=== PATIENT | male | born 1955 | race Caucasian/White ===

== ENCOUNTER 2018-04-30 08:35 | Outpatient (CLI) | payer OTHER, SELFPAY | END 2018-04-30 08:55 | PROVIDERS: PCP Nurse Practitioner Family; Visit Provider Internal Medicine Endocrinology, Diabetes & Metabolism | DX: E27.8 Other specified disorders of adrenal gland (principal); E87.6 Hypokalemia; E83.42 Hypomagnesemia | CPT/HCPCS: 36415; 80053; 80061; 82533; 83721 ==

== ENCOUNTER 2018-08-13 10:02 | Outpatient (CLI) | payer OTHER, SELFPAY ==
[2018-08-13 10:26] LABS: Abs Immature Grans 0.01 k/cumm (0.0-0.09); Absolute Basophil Count 0.02 k/cumm (0.0-0.2); Absolute Lymphocyte Count 1.86 k/cumm (1.2-3.4); Absolute Monocyte Count 0.57 k/cumm (0.11-0.7); Absolute Neutrophil Count 4.55 k/cumm (1.2-6.7); Basophils % 0.3; Eosinophils % 2.8; HCT 45.6 % (40.0-50.0); HGB 16.5 g/dL (13.5-17.5); Immature Grans % 0.1; Lymphocytes % 25.8; Mean Corp. HGB Concentration 36.2 g/dL (32.0-36.0); Mean Corpuscular Hemoglobin 32.5 pg (27.0-33.0); Mean Corpuscular Volume 89.8 fL (80-95); Mean Platelet Volume 9.3 fL (8.0-11.0); Monocytes % 7.9; Neutrophils % 63.1; Platelet Count 186 x1000/uL (130-400); RBC 5.08 m/cumm (4.50-6.00); RBC Distribution Width 13.9 % (11.8-14.1); White Blood Cell Count 7.21 k/cumm (4.4-10.8)
[2018-08-13 11:15] LABS: ALT 26 U/L (12-78); AST 17 U/L (15-37); Albumin 4.2 g/dL (3.4-5.0); Alkaline Phosphatase 102 U/L (46-116); Anion Gap 9.5 mmol/L (3-11); BUN 15 mg/dL (7-18); Bilirubin, Total 1.2 mg/dL (0.2-1.0); CO2 28.5 mmol/L (21.0-32.0); CREATININE 0.94 mg/dL (0.70-1.30); Chloride 102 mmol/L (98-107); Cholesterol 133 mg/dL (50-200); Glucose 107 mg/dL (70-100); HDL Cholesterol 43 mg/dL (40-60); LDL CHOLESTEROL 76 mg/dL (<100); Potassium 3.8 mmol/L (3.5-5.1); Sodium 140 mmol/L (136-145); Total Protein 7.5 g/dL (6.4-8.2); Triglyceride 79 mg/dL (30-150)
== END 2018-08-13 10:22 ==
PROVIDERS: PCP Nurse Practitioner Family; Visit Provider Nurse Practitioner Family
DX: E78.5 Hyperlipidemia, unspecified (principal); B18.2 Chronic viral hepatitis C; I10 Essential (primary) hypertension; Z13.1 Encounter for screening for diabetes mellitus; K74.60 Unspecified cirrhosis of liver
CPT/HCPCS: 36415; 80053; 80061; 83721; 85025

== ENCOUNTER 2020-02-26 02:55 | Outpatient (CLI) | payer OTHER, SELFPAY ==
[2020-02-26 07:32] LABS: Bilirubin Negative (Negative); Blood Negative (Negative); Clarity Clear (Clear); Glucose Negative (Negative); Ketones Negative (Negative); Leukocyte Esterase Negative (Negative); Nitrite Negative (Negative); Specific Gravity 1.025 (1.005-1.025)
[2020-02-26 07:55] LABS: INR 1.1 (0.9-1.1); Prothrombin Time 10.7 sec (9.3-11.0)
[2020-02-26 08:46] LABS: Hemoglobin A1C 5.4 % (3.8-5.6)
[2020-02-26 08:49] LABS: ALT 33 U/L (16-63); AST 18 U/L (15-37); Albumin 4.1 g/dL (3.4-5.0); Alkaline Phosphatase 102 U/L (46-116); Anion Gap 10.1 mmol/L (3-11); BUN 14 mg/dL (7-18); Bilirubin, Total 0.8 mg/dL (0.2-1.0); CO2 27.9 mmol/L (21.0-32.0); CREATININE 0.81 mg/dL (0.70-1.30); Calcium 8.7 mg/dL (8.5-10.1); Calculated LDL 92 mg/dL (<100); Chloride 102 mmol/L (98-107); Cholesterol 153 mg/dL (<200); Glucose 101 mg/dL (74-106); HDL Cholesterol 39 mg/dL (40-60); Potassium 3.7 mmol/L (3.5-5.1); Sodium 140 mmol/L (136-145); Total Protein 7.2 g/dL (6.4-8.2); Triglyceride 113 mg/dL (<150)
[2020-02-26 17:41] LABS: PSA, Screening 0.2 ng/mL (0.0-4.5)
== END 2020-02-26 03:15 ==
PROVIDERS: PCP Nurse Practitioner Family; Visit Provider Nurse Practitioner Family
DX: E78.5 Hyperlipidemia, unspecified (principal); B19.20 Unspecified viral hepatitis C without hepatic coma; K74.60 Unspecified cirrhosis of liver; R73.01 Impaired fasting glucose; R39.198 Other difficulties with micturition
CPT/HCPCS: 36415; 80053; 80061; 84153; 81003; 83036; 85610

== ENCOUNTER 2020-04-08 01:06 | Outpatient (CLI) | payer OTHER, SELFPAY ==
--- NOTE | 2020-04-08 | DI.US_ITS ---
EXAM: US ABDOMEN CLINICAL HISTORY: HEPATIC CIRRHOSIS,SCREEN FOR HCC,K74.60 TECHNIQUE: Ultrasound abdomen performed using standard protocol. COMPARISON: CT UPPER ABD W/WO CONTRAST(P) from 01/08/2018 US ABDOMEN ULTRASOUND (P) from 01/16/2018 US ABDOMEN ULTRASOUND (P) from 01/16/2018 FINDINGS: LIVER: Normal size. Mildly heterogeneous echotexture.. No focal liver lesions are seen.. GALLBLADDER: No evidence of cholelithiasis. A stone was noted on 2018 exam which was not identified on the current study. No evidence of wall thickening. No pericholecystic fluid identified. BACK'S SIGN: Negative. BILIARY SYSTEM: No intrahepatic or extrahepatic biliary ductal dilation. KIDNEYS: Kidneys are symmetric in size. No evidence of renal calculi. No evidence of hydronephrosis. No renal mass or cyst identified. PANCREAS: Normal where visualized. SPLEEN: Not enlarged. ABDOMINAL AORTA AND IVC: Visualized portions normal caliber. ASCITES: None seen. IMPRESSION: Mild coarsening of the liver echotexture. No evidence liver mass. DATA REPOSITORY:
== END 2020-04-08 01:26 ==
PROVIDERS: PCP Nurse Practitioner Family; Visit Provider Nurse Practitioner Adult Health
DX: K74.60 Unspecified cirrhosis of liver (principal)
CPT/HCPCS: 76700

== ENCOUNTER 2020-05-25 00:46 | Outpatient (CLI) | payer OTHER, MEDICARE, SELFPAY ==
--- NOTE | 2020-05-25 06:45 | DI.RAD_ITS ---
EXAM: XR CHEST 2V PA LATERAL CLINICAL HISTORY: R/o cardiopulm process to explain sx,DYSPNEA,PALPITATIONS,R06.00,R00.2 TECHNIQUE: 2D digital imaging was performed. COMPARISON: No exams were available for comparison FINDINGS: The heart is not enlarged. The lungs are clear and well expanded. No pleural effusion seen. Mediastin al contours appear intact. IMPRESSION: Normal chest RADIATION DOSE DELIVERED: Total DLP
== END 2020-05-25 01:06 ==
PROVIDERS: PCP Nurse Practitioner Family; Visit Provider Nurse Practitioner Family
DX: R06.00 Dyspnea, unspecified (principal); R00.2 Palpitations
CPT/HCPCS: 71046

== ENCOUNTER 2020-05-25 02:07 | Outpatient (CLI) | payer OTHER, MEDICARE, SELFPAY ==
[2020-05-25 14:24] LABS: HCT 42.6 % (40.0-50.0); HGB 15.4 g/dL (13.5-17.5); MCH 32.8 pg (27.0-33.0); MCHC 36.2 % (32.0-36.0); MCV 90.6 fL (80-95); MPV 9.4 fL (8.0-11.0); Platelet Count 200 10^3/uL (130-400); RDW 12.9 % (11.8-14.1); RDW-SD 42.4 fL; WBC 6.86 10^3/uL (4.4-10.8)
[2020-05-25 15:25] LABS: TSH (W/Ref FT4) 1.61 uIU/mL (0.36-3.74)
== END 2020-05-25 02:27 ==
PROVIDERS: PCP Nurse Practitioner Family; Visit Provider Nurse Practitioner Family
DX: R00.2 Palpitations (principal); R06.00 Dyspnea, unspecified
CPT/HCPCS: 36415; 85027; 84443

== ENCOUNTER 2020-05-28 02:57 | Outpatient (CLI) | payer OTHER, MEDICARE, SELFPAY ==
--- NOTE | 2020-06-16 13:27 | ZIOP_ITS ---
Date of service: 06/16/20 Time of Service: 13:27 14 Day Customer Service Coordinator Referring Provider:: Aura Johns Indications:: palpitations Note: This is a 14-day monitor ordered for palpitations Predominant rhythm is sinus with an average heart rate of 87. Minimum heart rate was 52, maximum 162(sinus tachycardia) There were rare to occasional atrial and ventricular ectopic beats There were rare atrial and ventricular couplets There was one 8 beat atrial run. There was several ventricular triplets There was no atrial fibrillation, pauses greater than 3 seconds, or high-grade AV block Patient events correlated to sinus rhythm
== END 2020-05-28 03:17 ==
PROVIDERS: PCP Nurse Practitioner Family; Visit Provider Nurse Practitioner Family
DX: R00.2 Palpitations (principal); I49.1 Atrial premature depolarization
CPT/HCPCS: 0296T

== ENCOUNTER 2020-06-15 00:02 | Outpatient (CLI) | payer OTHER, MEDICARE, SELFPAY ==
--- NOTE | 2020-06-15 09:00 | ETT_ITS ---
APPROVED REPORT Exam: Exercise Treadmill Patient Location: Out-Patient Room/Bed: Stress Nurse: Amparo Alvarez RN BMI: 26.62 Baseline Rhythm: Sinus Rhythm, PVC's Indications: BOGGS and palpitations, rule out CVD. Medical History Medical History: HTN, HLD, JOVI, Cirrhosis d/t hx of Hepatitis C, Adrenal Incidentaloma. Cardiac Medications: Atorvastatin, Hydrochlorothiazide,Ramipril Allergies: Penicillins Cardiac Risk Factors: HTN, Hyperlipidemia, FHX of CAD, Smoking (former) Previous Cardiac Procedures: None. Pretest Chest Pain Characteristics: No chest pain Exercise History: Physically active Physical Disabilities: None. Lung Sounds: Clear to auscultation Heart Sounds: Regular Stress Test Details Test: Exercise stress testing was performed using a Richi protocol. Rest Stress HR Resting HR Supine: 82 bpm Max Heart Rate (APMHR): 154 bpm Resting HR Standin bpm Target HR (85% APMHR): 130 bpm Max HR Achieved: 169 bpm % of APMHR: 109 Recovery HR: 103 bpm HR response to stress: Normal HR response to stress BP Resting BP Supine: 144/90 mmHg Resting BP Standin/86 mmHg Max BP: 174/78 mmHg Recovery BP: 140/88 mmHg BP response to stress: Normal blood pressure response to stress. ECG Resting ECG: Sinus Rhythm Ectopy: PVCs Stress ECG: Sinus Tachycardia ST Change: no signficant ST segment changes noted. Arrhythmia: PACs, frequent PVCs, couplet Recovery ECG: Sinus Rhythm Recovery ST Change: upward sloping ST segment depression Lead(s): II, V4, V5 Recovery ST Deviation: 0 mm Recovery Arrhythmia: PACs, PVCs Clinical Reason for Termination: Fatigue Stress Symptoms: Leg Fatigue Exercise duration: 12 min06 sec Highest Stage Reached: Stage 5: 5.0 mph at 18% grade. Exercise capacity: 13.54 METs Stress ECG Conclusion 1. The resting electrocardiogram was normal 2. Patient exercised on the Richi protocol. He completed a workload of 13.54 METS, stopping due to l eg fatigue 3. Normal heart rate and blood pressure response to exercise 4. Electrocardiographically there was no evidence of myocardial ischemia 5. There were rare ventricular ectopic beats 6. Martin treadmill score is 12, low risk Stress Test Summary STAGE Time (mins) Speed (mph) Grade (%) HR BP SYMPTOMS METS Supine 82 144/90 Standing 93 140/86 1 3 1.7 10 112 150/84 4.6 2 6 2.5 12 125 154/80 7 3 9 3.4 14 145 166/82 10.2 4 12 4.2 16 162 172/80 12.9 1 min recovery 148 174/78 3 min recovery 117 166/82 6 min recovery 104 138/83 9 min recovery 103 140/80
== END 2020-06-15 00:22 ==
PROVIDERS: PCP Nurse Practitioner Family; Visit Provider Nurse Practitioner Family
DX: R06.09 Other forms of dyspnea (principal); R00.2 Palpitations; I10 Essential (primary) hypertension; E78.5 Hyperlipidemia, unspecified; Z82.49 Family history of ischemic heart disease and other diseases of the circulatory system; Z87.891 Personal history of nicotine dependence
CPT/HCPCS: 93017

== ENCOUNTER 2020-10-15 02:30 | Outpatient (CLI) | payer OTHER, MEDICARE, SELFPAY ==
[2020-10-16 13:09] LABS: COVID-19 RT-PCR UVMMC Result Negative (Negative)
== END 2020-10-15 02:31 | disposition home or self-care (01) ==
LOC: LBO 02:30
PROVIDERS: PCP Nurse Practitioner Family; Visit Provider Nurse Practitioner Family
DX: Z20.828 Contact with and (suspected) exposure to other viral communicable diseases (principal)
CPT/HCPCS: U0003

== ENCOUNTER 2021-03-24 12:00 | Emergency (ER) | payer OTHER, MEDICARE, SELFPAY ==
[2021-03-24] VITALS (72 sets, daily range): BP systolic 111–156; BP diastolic 71–95; PULSE 72–98; RESP 13–25; TEMP 36.6–37.1; O2SAT 91–99
--- NOTE | 2021-03-24 12:00 | RT.EKG_ITS ---
APPROVED REPORT Exam: Resting ECG Reason for Exam: sob Patient Location: E HR:93 bpm ECG Measurements Heart Rate 93 AXIS IA 146 P 54 QRSd 81 QRS 28 QT 374 T 33 QTc 465 Conclusion Sinus rhythm...normal P axis, V-rate 60- 99 Atrial premature complex...SV complex w/ short R-R interval
[2021-03-24 12:34] LABS: Lactate 1.8 mmol/L (0.6-1.4)
[2021-03-24 12:40] LABS: Abs Immature Grans 0.01 10^3/uL (0.0-0.06); Absolute Lymphocyte Count 0.97 10^3/uL (1.2-3.4); Absolute Monocyte Count 0.29 10^3/uL (0.1-0.8); Absolute Neutrophil Count 2.24 10^3/uL (1.2-6.7); HGB 15.6 g/dL (13.5-17.5); Immature Grans % 0.3; Lymphocytes % 27.6; MCH 32.2 pg (27.0-33.0); MCHC 36.3 % (32.0-36.0); MCV 88.7 fL (80-95); MPV 9.9 fL (8.0-11.0); Monocytes % 8.3; Neutrophils % 63.8; Nucleated RBC 0 %; Platelet Count 124 10^3/uL (130-400); RBC 4.85 10^6/uL (4.36-5.78); RDW-SD 39.2 fL; WBC 3.51 10^3/uL (4.4-10.8)
[2021-03-24 12:46] LABS: Magnesium 1.8 mg/dL (1.8-2.4)
[2021-03-24 12:59] LABS: Source Nasal/Nares
[2021-03-24 12:59] LABS: ALT 49 U/L (16-63); AST 46 U/L (15-37); Albumin 3.6 g/dL (3.4-5.0); Alkaline Phosphatase 110 U/L (46-116); BUN 18 mg/dL (7-18); Bilirubin, Total 1.2 mg/dL (0.2-1.0); Calcium 8.4 mg/dL (8.5-10.1); Chloride 95 mmol/L (98-107); Glucose 95 mg/dL (74-106); NT-proBNP 61 pg/mL (<300); Potassium 3.2 mmol/L (3.5-5.1); Sodium 133 mmol/L (136-145); Total Protein 7.8 g/dL (6.4-8.2); Troponin I < 0.05 ng/mL (<0.06)
[2021-03-24] MEDS: Normal Saline 1,000 ML 1000 ML IV (13:03)
[2021-03-24] MEDS: Acetaminophen 500 MG TAB 1000 MG PO (13:03)
--- NOTE | 2021-03-24 13:15 | DI.CT_ITS ---
Exam(s) CT CHEST PE CTA EXAM: CT CHEST PE CTA CLINICAL HISTORY: elevated ddimer, sob. TECHNIQUE: Imaging Protocol: CT angiography of the chest was performed using pulmonary embolus surjit col. Multi planar reconstructions were performed. CONTRAST MATERIAL: Intravenous: Omnipaque 350 Contrast volume: 100 cc COMPARISON: CT CHEST FOR PULMONARY EMBOLUS from 06/24/2017 CT UPPER ABD W/WO CONTRAST(P) from 01/08/2018 FINDINGS: CHEST: PULMONARY ARTERIES: There are no intraluminal filling defects to suggest acute pulmonary emboli. LUNGS: There is significant infiltrate in the posterior segment of the right upper lobe, superior seg ment of the right lower lobe and posterior and lateral basal segments of the right lower lobe, not as sociated with pleural effusion. A lesser amount of the same infiltrate is seen in the left lung invo lving the left lower lobe. There is sparing of the left upper lobe and lingular segment.. No pleura l effusions on either side. No significant focal findings in the trachea and mainstem bronchi. MEDIASTINUM: There is no hilar nor mediastinal adenopathy. Visualized thyroid unremarkable. CARDIAC: Heart size is upper normal. There is no pericardial effusion.Caliber of the thoracic aorta is within normal limits. No evidence of aortic dissection. There is no significant shift of the inte rventricular septum. PARTIALLY VISUALIZED UPPERMOST ABDOMEN: There is a well-defined hypodense nodule in the right adrenal gland again noted which measures 2.2 cm wide by 2.1 cm AP by 2 cm craniocaudal. This is unchanged i n size from 3 years ago (December 2017) OSSEOUS: No significant osseous lesions.. IMPRESSION: 1. No evidence of acute pulmonary emboli. No evidence of pulmonary infarction.No pleural effusions. 2. However, there is now significant infiltrate in the right upper and right lower lobes as well as i n the left lower lobe. Recommend Covid-19 testing. 3. No intrathoracic adenopathy evident. 4. Continued stable appearance of a 2 centimeter nodule in the right adrenal gland, unchanged from J une 2018 (3 years) and us a stable benign adenoma. The opposite-left adrenal gland remains unremarka ble. RADIATION DOSE DELIVERED: 446.63mGy.cm Total DLP DATA REPOSITORY: All CT scans at this facility are submitted to the National Radiology Data Registry (NRDR) Dose Index Registry (DIR) with the [employer] (ACR). RADIATION OPTIMIZATION: All CT scans at this facility use at least one of these dose optimization te chniques: automated exposure control; mA and/or kV adjustment per patient size (includes targeted exa ms where dose is matched to clinical indication); or iterative reconstruction.
[2021-03-24 13:17] LABS: D-Dimer 3758 ng/mlFEU (<500)
[2021-03-24 13:22] LABS: Creatine Kinase 143 U/L (39-308); TSH (W/Ref FT4) 1.68 uIU/mL (0.36-3.74)
[2021-03-24 13:49] LABS: COVID-19 PCR POSITIVE (Negative)
[2021-03-24] MEDS: Omnipaque 350 MG/ML 100 ML BTL IJ (14:23)
[2021-03-24 14:24] LABS: C-Reactive Protein 1.43 mg/dL (0.0-0.3); LDH 303 U/L (85-227)
[2021-03-24 16:01] LABS: Bilirubin Negative (Negative); Blood Negative (Negative); Clarity Clear (Clear); Glucose Negative (Negative); Ketones 15 mg/dL (Negative); Leukocyte Esterase Negative (Negative); Nitrite Negative (Negative); Urobilinogen 0.2 EU/dL (Up TO 0.2)
--- NOTE | 2021-03-24 16:08 | W.ED.GENAD ---
Discharge Plan Disposition Patient Disposition: HOME Condition: Stable Discharge Details Clinical Impression: COVID-19 Primary Care Provider: Aura Johns ED Provider: Diallo Mcgee Home Meds and New Rx's Prescriptions: New doxycycline hyclate 100 mg tablet 100 mg PO BID Qty: 14 RF: 0 Continued atorvastatin 20 mg tablet 20 mg PO DAILY Qty: 90 RF: 3 hydrochlorothiazide 12.5 mg capsule 12.5 mg PO DAILY Qty: 90 RF: 3 ramipril 10 mg capsule 10 mg PO DAILY Qty: 90 RF: 3 Discharge Instructions Instructions: Viral Syndrome (ED) Additional Instructions: You must isolate for 7 additional days Take antibiotics as prescribed Take Tylenol 650 mg every 6 hours for fever control, keep yourself hydrated You should not have exposure outside of your immediate household for the next 10 days You are receiving monoclonal antibody, you are at risk for allergic reaction, if you develop worsening shortness of breath, difficulty swallowing, or any new or progressing symptoms, he should go to your nearest hospital for evaluation You also may develop worsening symptoms, check your pulse oximeter should you feel short of breath, if your oxygen saturation is lower than 90%, you should be reevaluated at your nearest hospital, please let them know immediately that you do have COVID-19 Discharge Data Discharge Date/Time-TO BE ENTERED AT DEPARTURE: 03/24/21 19:31 Medical Decision Making <RYAN Velasco - Last Filed: 03/26/21 08:07> Patient has Covid pneumonia on chest CTA, she also has elevated D-dimer, 3700, elevated LDH, 300, elevated CRP greater than 100, leukopenia consistent with Covid, lymphocytopenia consistent with Covid, he is not hypoxic however and he is in no respiratory distress, he is ambulatory for 2 months with a saturation of 97%. He is tachypneic but states he feels significant improvement At this time I think this patient has borderline neck, I am concerned as he is on day 4 that he is going to further decompensate within the next several days Did recommend admission, I spoke with Dr. Brumfield hospitalist who spoke with our property maintenance technician on-call and they feel as though the patient does not meet criteria for admission at this time, I think this patient is quite borderline, however he does have a who is able to observe him, he is given pulse oximetry and is stable at this time He has a Pulsoxymeter for home, he is encouraged to return immediately should he develop oxygen saturation less than 90%, he will return immediately for reevaluation He is receiving a monoclonal antibody, was updated They are aware that he will need to isolate Able to be placed on doxycycline I will order an additional dose of Tylenol as he will likely develop a fever shortly He will be discharged home in stable condition post Infusion of monoclonal antibody Care signed out to Diallo Mcgee PA-C pending monoclonal antibody infusion, dose of Tylenol at 4-hour samira, and doxycycline for home Results oximetry testing reviewed Medical Records Medical records reviewed: Yes I reviewed the patient's medical records. Lab Data Lab results reviewed: Yes I reviewed the patient's lab results. <RYAN Hernández - Last Filed: 03/24/21 19:44> I assumed care of this 65-year-old gentleman, from my colleague RYAN Kohler, pending his antibiotic infusion, p.o. Tylenol, doxycycline and observation. Please see her initial note regarding HPI and examination. Patient is Covid positive. Patient received his antibiotic infusion, p.o. Tylenol and doxycycline. He was observed in the ER for over an hour with no signs of anaphylaxis. Patient states that he feels well, remains afebrile, and is speaking in full sentences. His O2 sat is 96% on room air. All of the patient's questions were answered to the best of my ability. Standard discharge and return precautions were given. This documentation was generated using [employer] dictation system, please disregard any oddities of phrase or misspellings. HPI <RYAN Velasco - Last Filed: 03/26/21 08:07> General Mode of arrival: ambulatory. Date/Time Provider Initiated Documentation: 03/24/21 12:09. Limitations to Documentation: no limitations. Information obtained by: patient. HPI Narrative: This 65-year-old male presents with medical history of hypertension hypertension, hyperlipidemia with fatigue and dyspnea. He states is been going on for the past 4 days. She denies any chest pain. He states that he feels generally fatigued more been short of breath. He states the symptoms are worsened with exertion. He denies any calf pain or swelling. He denies any recent flights, surgeries, long drives. He did attend the concert 2 weeks ago. Is not Covid vaccinated. He denies similar symptoms in the past. He is unsure if whether or not he had fever at home. He denies any urinary complaints. Denies nausea or vomiting. Related Data Home Medications Medication Instructions Recorded Confirmed atorvastatin 20 mg tablet 20 mg PO DAILY #90 tab-cap 12/11/20 03/24/21 hydrochlorothiazide 12.5 mg capsule 12.5 mg PO DAILY #90 tab-cap 12/11/20 03/24/21 ramipril 10 mg capsule 10 mg PO DAILY #90 tab-cap 12/11/20 03/24/21 doxycycline hyclate 100 mg PO BID #14 tab 03/24/21 Previous Rx's Medication Instructions Recorded atorvastatin 20 mg tablet 20 mg PO DAILY #90 tab-cap 12/11/20 hydrochlorothiazide 12.5 mg capsule 12.5 mg PO DAILY #90 tab-cap 12/11/20 ramipril 10 mg capsule 10 mg PO DAILY #90 tab-cap 12/11/20 doxycycline hyclate 100 mg PO BID #14 tab 03/24/21 Allergies Allergy/AdvReac Type Severity Reaction Status Date / Time Penicillins Allergy Unknown HIVES Verified 03/24/21 12:10 General Stated Complaint: SOB DON: 2 Review of Systems <RYAN Velasco - Last Filed: 03/26/21 08:07> All systems reviewed & are unremarkable except as noted in HPI and below PFSH <RYAN Velasco - Last Filed: 03/26/21 08:07> Medical History (Updated 03/24/21 @ 16:18 by RYAN Velasco) Adenomatous polyp of sigmoid colon (08/31/17) Adrenal incidentaloma [facility] Endocrinology (Dr. 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 at age 70. Rheumatoid arthritis Heart disease Myocardial infarction Father , Parkinson's at age 70. Parkinson's disease Sister Substance abuse Historically Brother No problems noted. 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 Pets and animals: Yes Pets and animals: dog(s) Sexually active: Yes Current gender identity: male What type of physical activity do you participate in: walking Frequency: daily Do you feel safe in your relationship?: Yes Exam <RYAN Velasco - Last Filed: 03/26/21 08:07> Const General: cooperative and ill appearing HENMT Other: Moist mucous membrane Eyes Pupils: PERRL Neck Other: No meningismus Resp Effort & Inspection: normal respiratory effort Auscultation: clear to auscultation bilaterally Cardio Rate: regular rate Rhythm: regular rhythm GI Other: Nontender abdominal exam Skin General skin exam: no rashes or lesions noted Neuro General: patient alert and patient oriented x3 Extrem Other: No calf swelling or tenderness appreciated Course <RYAN Velasco - Last Filed: 03/26/21 08:07> Vital Signs Vital signs: Vital Signs Temperature 37.1 C 03/24/21 12:05 Pulse 93 H 03/24/21 12:05 Respiratory Rate 22 03/24/21 12:05 Blood Pressure 156/94 H 03/24/21 12:05 Pulse Oximetry 99 03/24/21 12:05 Temperature 36.8 C 03/24/21 15:14 Temperature Source Oral 03/24/21 15:14 Pulse 98 H 03/24/21 15:46 Pulse 75 03/24/21 16:00 Respiratory Rate 19 03/24/21 16:00 Respiratory Effort Labored 03/24/21 12:11 Respiratory Depth Normal 03/24/21 12:11 Respiratory Pattern Normal 03/24/21 12:11 Blood Pressure 130/95 H 03/24/21 15:46 Blood Pressure Mean 99 03/24/21 15:46 Blood Pressure Position Supine 03/24/21 12:05 Pulse Oximetry 98 03/24/21 16:00 Oxygen Delivery Method Room Air 03/24/21 15:14 Oxygen Flow Rate 0 03/24/21 15:14 Pain Level 0 03/24/21 15:14 Lab/Test Results Lab/Test Results: 03/24/21 13:18 Blood Blood Culture - Pending 03/24/21 13:10 Blood Blood Culture - Pending Laboratory Tests Range/Units 03/24/21 03/24/21 03/24/21 12:20 12:20 12:20 WBC (4.4-10.8) 10^3/uL 3.51 L RBC (4.36-5.78) 10^6/uL 4.85 Hgb (13.5-17.5) g/dL 15.6 Hct (40.0-50.0) % 43.0 MCV (80-95) fL 88.7 MCH (27.0-33.0) pg 32.2 MCHC (32.0-36.0) % 36.3 H RDW (11.8-14.1) % 12.0 Plt Count (130-400) 10^3/uL 124 L MPV (8.0-11.0) fL 9.9 Immature Gran % 0.3 Neutrophils % 63.8 Lymphocytes % 27.6 Monocytes % 8.3 Eosinophils % 0.0 Basophils % 0.0 Nucleated RBC % % 0 Absolute Neutrophils (1.2-6.7) 10^3/uL 2.24 Absolute Lymphocytes (1.2-3.4) 10^3/uL 0.97 L Absolute Monocytes (0.1-0.8) 10^3/uL 0.29 Absolute Eosinophils (0.0-0.7) 10^3/uL 0.00 Absolute Basophils (0.0-0.2) 10^3/uL 0.00 D-Dimer (<500) ng/mlFEU VBG Lactate (0.6-1.4) mmol/L Sodium (136-145) mmol/L 133 L Potassium (3.5-5.1) mmol/L 3.2 L Chloride (98-107) mmol/L 95 L Carbon Dioxide (21.0-32.0) mmol/L 25.0 Anion Gap (3-11) mmol/L 13.0 H BUN (7-18) mg/dL 18 Creatinine (0.70-1.30) mg/dL 1.0 Estimated GFR/1.73 m2 (mL/min/1.73m2) >= 60.00 Glucose (74-106) mg/dL 95 Calcium (8.5-10.1) mg/dL 8.4 L Magnesium (1.8-2.4) mg/dL 1.8 Total Bilirubin (0.2-1.0) mg/dL 1.2 H AST (15-37) U/L 46 H ALT (16-63) U/L 49 Alkaline Phosphatase (46-116) U/L 110 Lactate Dehydrogenase (85-227) U/L Creatine Kinase (39-308) U/L Troponin I (<0.06) ng/mL < 0.05 C-Reactive Protein (0.0-0.3) mg/dL NT-Pro-B Natriuret Pep (<300) pg/mL 61 Total Protein (6.4-8.2) g/dL 7.8 Albumin (3.4-5.0) g/dL 3.6 TSH (0.36-3.74) uIU/mL Urine Color (Yellow) Urine Clarity (Clear) Urine pH (5-8) Ur Specific [place] (1.005-1.025) Urine Protein (Negative) mg/dL Urine Ketones (Negative) mg/dL Urine Blood (Negative) Urine Nitrite (Negative) Urine Bilirubin (Negative) Urine Urobilinogen (Up TO 0.2) EU/dL Ur Leukocyte Esterase (Negative) Urine Glucose (Negative) mg/dL COVID-19 Source SARS-CoV-2 (PCR) (Negative) Range/Units 03/24/21 03/24/21 03/24/21 12:20 12:20 12:20 WBC (4.4-10.8) 10^3/uL RBC (4.36-5.78) 10^6/uL Hgb (13.5-17.5) g/dL Hct (40.0-50.0) % MCV (80-95) fL MCH (27.0-33.0) pg MCHC (32.0-36.0) % RDW (11.8-14.1) % Plt Count (130-400) 10^3/uL MPV (8.0-11.0) fL Immature Gran % Neutrophils % Lymphocytes % Monocytes % Eosinophils % Basophils % Nucleated RBC % % Absolute Neutrophils (1.2-6.7) 10^3/uL Absolute Lymphocytes (1.2-3.4) 10^3/uL Absolute Monocytes (0.1-0.8) 10^3/uL Absolute Eosinophils (0.0-0.7) 10^3/uL Absolute Basophils (0.0-0.2) 10^3/uL D-Dimer (<500) ng/mlFEU 3758 H VBG Lactate (0.6-1.4) mmol/L 1.8 H Sodium (136-145) mmol/L Potassium (3.5-5.1) mmol/L Chloride (98-107) mmol/L Carbon Dioxide (21.0-32.0) mmol/L Anion Gap (3-11) mmol/L BUN (7-18) mg/dL Creatinine (0.70-1.30) mg/dL Estimated GFR/1.73 m2 (mL/min/1.73m2) Glucose (74-106) mg/dL Calcium (8.5-10.1) mg/dL Magnesium (1.8-2.4) mg/dL Total Bilirubin (0.2-1.0) mg/dL AST (15-37) U/L ALT (16-63) U/L Alkaline Phosphatase (46-116) U/L Lactate Dehydrogenase (85-227) U/L Creatine Kinase (39-308) U/L 143 Troponin I (<0.06) ng/mL C-Reactive Protein (0.0-0.3) mg/dL NT-Pro-B Natriuret Pep (<300) pg/mL Total Protein (6.4-8.2) g/dL Albumin (3.4-5.0) g/dL TSH (0.36-3.74) uIU/mL 1.68 Urine Color (Yellow) Urine Clarity (Clear) Urine pH (5-8) Ur Specific [place] (1.005-1.025) Urine Protein (Negative) mg/dL Urine Ketones (Negative) mg/dL Urine Blood (Negative) Urine Nitrite (Negative) Urine Bilirubin (Negative) Urine Urobilinogen (Up TO 0.2) EU/dL Ur Leukocyte Esterase (Negative) Urine Glucose (Negative) mg/dL COVID-19 Source SARS-CoV-2 (PCR) (Negative) Range/Units 03/24/21 03/24/21 03/24/21 12:20 12:55 15:50 WBC (4.4-10.8) 10^3/uL RBC (4.36-5.78) 10^6/uL Hgb (13.5-17.5) g/dL Hct (40.0-50.0) % MCV (80-95) fL MCH (27.0-33.0) pg MCHC (32.0-36.0) % RDW (11.8-14.1) % Plt Count (130-400) 10^3/uL MPV (8.0-11.0) fL Immature Gran % Neutrophils % Lymphocytes % Monocytes % Eosinophils % Basophils % Nucleated RBC % % Absolute Neutrophils (1.2-6.7) 10^3/uL Absolute Lymphocytes (1.2-3.4) 10^3/uL Absolute Monocytes (0.1-0.8) 10^3/uL Absolute Eosinophils (0.0-0.7) 10^3/uL Absolute Basophils (0.0-0.2) 10^3/uL D-Dimer (<500) ng/mlFEU VBG Lactate (0.6-1.4) mmol/L Sodium (136-145) mmol/L Potassium (3.5-5.1) mmol/L Chloride (98-107) mmol/L Carbon Dioxide (21.0-32.0) mmol/L Anion Gap (3-11) mmol/L BUN (7-18) mg/dL Creatinine (0.70-1.30) mg/dL Estimated GFR/1.73 m2 (mL/min/1.73m2) Glucose (74-106) mg/dL Calcium (8.5-10.1) mg/dL Magnesium (1.8-2.4) mg/dL Total Bilirubin (0.2-1.0) mg/dL AST (15-37) U/L ALT (16-63) U/L Alkaline Phosphatase (46-116) U/L Lactate Dehydrogenase (85-227) U/L 303 H Creatine Kinase (39-308) U/L Troponin I (<0.06) ng/mL C-Reactive Protein (0.0-0.3) mg/dL 1.43 H NT-Pro-B Natriuret Pep (<300) pg/mL Total Protein (6.4-8.2) g/dL Albumin (3.4-5.0) g/dL TSH (0.36-3.74) uIU/mL Urine Color (Yellow) Yellow Urine Clarity (Clear) Clear Urine pH (5-8) 7.0 Ur Specific [place] (1.005-1.025) 1.010 Urine Protein (Negative) mg/dL 30 H Urine Ketones (Negative) mg/dL 15 H Urine Blood (Negative) Negative Urine Nitrite (Negative) Negative Urine Bilirubin (Negative) Negative Urine Urobilinogen (Up TO 0.2) EU/dL 0.2 Ur Leukocyte Esterase (Negative) Negative Urine Glucose (Negative) mg/dL Negative COVID-19 Source Nasal/Nares SARS-CoV-2 (PCR) (Negative) POSITIVE A*
[2021-03-24 16:14] LABS: Troponin I < 0.05 ng/mL (<0.06)
[2021-03-24 16:16] LABS: Bacteria Negative HPF (Negative); C & S Indicated? No; Crystals Negative HPF (Negative); Epithelial Cells Negative HPF (Negative); Mucus Negative (Negative); RBC 0-2 HPF (0-2); WBC Negative HPF (0-5)
[2021-03-24] MEDS: Acetaminophen 325 MG TAB 650 MG PO (19:20)
[2021-03-24] MEDS: Doxycycline Hyclate 100 MG CAP PO (19:21)
== END 2021-03-24 19:31 | disposition home or self-care (01) ==
PROVIDERS: Physician Assistant; Emergency Provider Physician Assistant; PCP Nurse Practitioner Family
DX: U07.1 COVID-19 (principal); J12.82 Pneumonia due to coronavirus disease 2019; R79.1 Abnormal coagulation profile; Z20.822 Contact with and (suspected) exposure to COVID-19
CPT/HCPCS: 36415; 71275; 80053; 82550; 87040; 87635; 93005; 96360; 96365; 99285; 81003; 81015; 83605; 83615; 83735; 83880; 84443; 84484; 85025; 85379; 86140; 93010; J3490

== ENCOUNTER 2021-05-17 03:08 | Outpatient (CLI) | payer OTHER, MEDICARE, SELFPAY ==
[2021-05-17 13:05] LABS: Abs Immature Grans 0.02 10^3/uL (0.0-0.06); Absolute Basophil Count 0.02 10^3/uL (0.0-0.2); Absolute Eosinophil Count 0.17 10^3/uL (0.0-0.7); Absolute Lymphocyte Count 1.86 10^3/uL (1.2-3.4); Absolute Monocyte Count 0.44 10^3/uL (0.1-0.8); Absolute Neutrophil Count 4.22 10^3/uL (1.2-6.7); Basophils % 0.3; Eosinophils % 2.5; HCT 41.9 % (40.0-50.0); HGB 14.4 g/dL (13.5-17.5); Immature Grans % 0.3; Lymphocytes % 27.6; MCH 31.7 pg (27.0-33.0); MCHC 34.4 % (32.0-36.0); MCV 92.3 fL (80-95); MPV 9.1 fL (8.0-11.0); Monocytes % 6.5; Neutrophils % 62.8; Nucleated RBC 0 %; Platelet Count 193 10^3/uL (130-400); RBC 4.54 10^6/uL (4.36-5.78); RDW 13.9 % (11.8-14.1); RDW-SD 47.6 fL; WBC 6.73 10^3/uL (4.4-10.8)
[2021-05-17 13:23] LABS: Hemoglobin A1C 5.4 % (<5.7)
[2021-05-17 13:42] LABS: Prothrombin Time 10.4 sec (9.3-11.0)
[2021-05-17 15:43] LABS: ALT 30 U/L (16-63); AST 17 U/L (15-37); Albumin 4.1 g/dL (3.4-5.0); Alkaline Phosphatase 100 U/L (46-116); Anion Gap 8.3 mmol/L (3-11); BUN 14 mg/dL (7-18); Bilirubin, Total 0.9 mg/dL (0.2-1.0); CO2 28.7 mmol/L (21.0-32.0); CREATININE 0.7 mg/dL (0.70-1.30); Calcium 8.8 mg/dL (8.5-10.1); Calculated LDL 108 mg/dL (<100); Chloride 106 mmol/L (98-107); Cholesterol 169 mg/dL (<200); Glucose 92 mg/dL (74-106); HDL Cholesterol 44 mg/dL (40-60); Potassium 4.3 mmol/L (3.5-5.1); Sodium 143 mmol/L (136-145); Total Protein 7.1 g/dL (6.4-8.2); Triglyceride 87 mg/dL (<150)
== END 2021-05-17 03:09 | disposition home or self-care (01) ==
LOC: LBO 03:09
PROVIDERS: PCP Nurse Practitioner Family; Visit Provider Nurse Practitioner Family
DX: I10 Essential (primary) hypertension (principal); E78.5 Hyperlipidemia, unspecified; R73.01 Impaired fasting glucose; B18.2 Chronic viral hepatitis C; K74.60 Unspecified cirrhosis of liver
CPT/HCPCS: 36415; 80053; 80061; 83036; 85025; 85610

== ENCOUNTER → 2021-12-22 03:40 | Outpatient (CLI) | payer MEDICARE, SELFPAY ==
--- NOTE | 2021-12-22 06:45 | DI.US_ITS ---
Exam(s) US ABDOMEN EXAM: US ABDOMEN CLINICAL HISTORY: Q6 month screening for HCC, B18.2, K74.60, HEPATIC CIRRHOSIS TECHNIQUE: Ultrasound abdomen performed using standard protocol. COMPARISON: US US ABDOMEN from 06/10/2021 FINDINGS: ABDOMINAL AORTA AND IVC: Visualized portions normal caliber. PANCREAS: Normal where visualized. LIVER: Normal. Hepatopedal flow in the Portal Vein. GALLBLADDER:No evidence of cholelithiasis. No evidence of wall thickening. No pericholecystic fluid i dentified. BILIARY SYSTEM: Common bile duct measures < 7 mm. No intrahepatic biliary ductal dilation. BACK'S SIGN: Negative. KIDNEYS: Kidneys are symmetric in size. No evidence of renal calculi. No evidence of hydronephrosis. No renal mass or cyst identified. SPLEEN: Not enlarged. ASCITES: None seen. IMPRESSION: Normal sonographic appearance of the upper abdomen. DATA REPOSITORY:
== END ==
PROVIDERS: PCP Nurse Practitioner Family; Visit Provider Nurse Practitioner Family
DX: B18.2 Chronic viral hepatitis C (principal); K74.60 Unspecified cirrhosis of liver
CPT/HCPCS: 76700

== ENCOUNTER → 2021-12-23 02:23 | Outpatient (CLI) | payer MEDICARE, SELFPAY ==
--- NOTE | 2021-12-23 07:28 | DI.CT_ITS ---
Exam(s) CT ABDOMEN WO EXAM: CT ABDOMEN WO CLINICAL HISTORY: overdue f/u adrenal mass to check for stability, E27.8. TECHNIQUE: Imaging Protocol: Axial computed tomography images with coronal and sagittal reformatted images were created and reviewed. COMPARISON: CT CHEST FOR PULMONARY EMBOLUS from 06/24/[address] CHEST PE CTA from 03/24/2021 FINDINGS: Lack of IV contrast does limit evaluation of the abdominal organs. ABDOMEN: Lung Bases: Normal where visualized. Liver: Normal density. No measurable mass. Gallbladder and biliary tract: No radiodense calculus or biliary ductal dilation. Pancreas: Normal density, no abnormal calcifications or inflammatory process. Spleen: Normal. Kidneys: Normal size, contour and axis.No radiodense stones or obstructive uropathy. No masses seen. Adrenal glands: The left adrenal gland is unremarkable. There is a stable 2.2 cm hypodense right adr enal nodule. Hounsfield units are -8. This is been stable since 2017. No follow-up is recommended. Lymph nodes: Within normal limits. Bowel: Visualized bowel is unremarkable. Abdominal Aorta: Abdominal portion non-dilated. Atherosclerosis. Bones: Age-appropriate degenerative changes are present. Soft tissues: Unremarkable. IMPRESSION: 2.2 cm right adrenal nodule which has been stable since 2017. It is most likely represents a adrenal adenoma. No follow-up is recommended. RADIATION DOSE DELIVERED: 399.31mGy.cm Total DLP DATA REPOSITORY: All CT scans at this facility are submitted to the National Radiology Data Registry (NRDR) Dose Index Registry (DIR) with the [employer] (A[employer]). RADIATION OPTIMIZATION: All CT scans at this facility use at least one of these dose optimization te chniques: automated exposure control; mA and/or kV adjustment per patient size (includes targeted exa ms where dose is matched to clinical indication); or iterative reconstruction.
== END ==
PROVIDERS: PCP Nurse Practitioner Family; Visit Provider Nurse Practitioner Family
DX: E27.8 Other specified disorders of adrenal gland (principal); D35.01 Benign neoplasm of right adrenal gland
CPT/HCPCS: 74150

== ENCOUNTER 2022-04-26 03:12 | Outpatient (CLI) | payer MEDICARE, SELFPAY ==
[2022-04-26 07:44] LABS: Abs Immature Grans 0.01 10^3/uL (0.0-0.06); Absolute Basophil Count 0.05 10^3/uL (0.0-0.2); Absolute Eosinophil Count 0.33 10^3/uL (0.0-0.7); Absolute Lymphocyte Count 2.37 10^3/uL (1.2-3.4); Absolute Monocyte Count 0.54 10^3/uL (0.1-0.8); Absolute Neutrophil Count 3.16 10^3/uL (1.2-6.7); Basophils % 0.8; Eosinophils % 5.1; HCT 43.1 % (40.0-50.0); HGB 15.4 g/dL (13.5-17.5); Immature Grans % 0.2; Lymphocytes % 36.7; MCH 32.8 pg (27.0-33.0); MCHC 35.7 % (32.0-36.0); MCV 92 fL (80-95); MPV 9.5 fL (8.0-11.0); Monocytes % 8.4; Neutrophils % 48.8; Platelet Count 164 10^3/uL (130-400); RBC 4.69 10^6/uL (4.36-5.78); RDW 13.2 % (11.8-14.1); RDW-SD 44.6 fL; WBC 6.46 10^3/uL (4.4-10.8)
[2022-04-26 07:58] LABS: Hemoglobin A1C 5.3 % (<5.7)
[2022-04-26 08:11] LABS: ALT 27 U/L (16-63); AST 13 U/L (15-37); Alkaline Phosphatase 99 U/L (46-116); Anion Gap 8.4 mmol/L (3-11); BUN 19 mg/dL (7-18); Bilirubin, Total 1.3 mg/dL (0.2-1.0); CO2 28.6 mmol/L (21.0-32.0); CREATININE 0.9 mg/dL (0.70-1.30); Calculated LDL 78 mg/dL (<100); Chloride 104 mmol/L (98-107); Cholesterol 141 mg/dL (<200); Estimated GFR 93.03 (mL/min/1.73m2); Glucose 98 mg/dL (74-106); HDL Cholesterol 42 mg/dL (40-60); Potassium 4.6 mmol/L (3.5-5.1); Sodium 141 mmol/L (136-145); Total Protein 7.4 g/dL (6.4-8.2); Triglyceride 106 mg/dL (<150)
== END 2022-04-26 03:13 | disposition home or self-care (01) ==
LOC: LBO 03:13
PROVIDERS: PCP Nurse Practitioner Family; Visit Provider Nurse Practitioner Family
DX: E78.5 Hyperlipidemia, unspecified (principal); R73.01 Impaired fasting glucose; K74.69 Other cirrhosis of liver; B18.2 Chronic viral hepatitis C
CPT/HCPCS: 36415; 80053; 80061; 83036; 85025

== ENCOUNTER → 2022-05-26 03:09 | Outpatient (CLI) | payer MEDICARE, SELFPAY ==
--- NOTE | 2022-05-26 08:00 | DI.US_ITS ---
Exam(s) US ABDOMEN LIMITED EXAM: US ABDOMEN LIMITED CLINICAL HISTORY: screening for liver cancer,hepatic cirrhosis, k74.60 TECHNIQUE: Ultrasound abdomen performed using standard protocol. COMPARISON: CT CT ABDOMEN WO from 12/23/2021 FINDINGS: PANCREAS: Normal where visualized. LIVER: Normal. Hepatopedal flow in the Portal Vein. The liver measures in 13.4 cm length. GALLBLADDER: No evidence of cholelithiasis. No evidence of wall thickening. No pericholecystic fluid identified. BILIARY SYSTEM: Common bile duct measures < 7 mm. No intrahepatic biliary ductal dilation. BACK'S SIGN: Negative. RIGHT KIDNEY: Kidney is normal in size. No evidence of renal calculi. No evidence of hydronephrosis. No renal mass or cyst identified. ASCITES: None seen. ABDOMINAL AORTA AND IVC: Visualized portions normal caliber. IMPRESSION: Normal sonographic appearance of the upper abdomen. DATA REPOSITORY:
== END ==
PROVIDERS: PCP Nurse Practitioner Family; Visit Provider Nurse Practitioner Family
DX: K74.60 Unspecified cirrhosis of liver (principal)
CPT/HCPCS: 76705

== ENCOUNTER → 2022-08-18 09:38 | Outpatient (BNVA) | payer MEDICARE, SELFPAY | PROVIDERS: PCP Nurse Practitioner Family; Referring Provider Nurse Practitioner Family; Visit Provider Physical Therapy Assistant | DX: Z86.010 Personal history of colon polyps (principal); Z12.11 Encounter for screening for malignant neoplasm of colon ==

== ENCOUNTER 2022-09-01 09:04 | Day surgery (SDC) | payer MEDICARE, SELFPAY ==
--- NOTE | 2022-08-31 21:27 | W.PM.DSUDISC ---
Date of service: 09/01/22 Time of Service: 11:20 Discharge Plan Disposition Patient Disposition: Home Condition: Good Discharge Details Reason For Visit: Screening colonoscopy Attending Provider: Nicola Pascal Primary Care Provider: Aura Johns Home Meds and New Rx's Prescriptions: Continued atorvastatin 20 mg tablet 20 mg PO HS hydrochlorothiazide 12.5 mg capsule 12.5 mg PO HS ramipril 10 mg capsule 10 mg PO HS Discontinued bisacodyl [Dulcolax (bisacodyl)] 5 mg tablet,delayed release (DR/EC) 5 mg PO ONCE Qty: 4 0RF Rx Instructions: Take according to provider's instructions for colonoscopy prep. polyethylene glycol 3350 17 gram/dose powder 17 g PO ONCE Qty: 238 0RF Rx Instructions: To be taken as directed by prescriber's office for colonoscopy prep. Discharge Instructions Additional Instructions: On, we are able to perform a complete colonoscopy today. I did not see any evidence of any polyps anywhere throughout your large intestine. Everything else looked totally normal as well. Since your last colonoscopy had only a singular tubular adenoma, and this 1 was negative, a standard recommendation would be for your next screening colonoscopy in 10 years. However, you should know that some physicians debate the utility of screening colonoscopy after 75 years of age. In that regards, I would suggest giving thoughtful consideration as to what you expect out of this procedure. If you have tolerated the colonoscopy is fine in the past, it would be very reasonable to get 1 more colonoscopy in the next 5 to 10 years and to reassess how you feel after that. 1. If tolerated, consume a soft, low fiber diet for 1-2 days. 2[address] Do not drive, drink alcohol, operate machinery, make critical decisions, or do activities that require coordination or balance for 24 hours. 3. Because air was put into your colon during the procedure, expelling air from your rectum (passing gas or farting) is normal. 4. You may not have a bowel movement for 1-3 days because of the colonoscopy prep. This is normal. 5. Go directly to the emergency room if you notice any of the following: Develop chills (warm to touch), or if you have a thermometer and your temperature is above 101 Difficulty breathing or difficultly swallowing Persistent vomiting Severe abdominal pain, other than gas cramps Severe chest pain Black, tarry stools Any bleeding ? exceeding one tablespoon 6. Call your physician if the site where your intravenous was started becomes red, swollen, painful, and warm to touch. 7. Your physician has reviewed your pre-procedure medications. Please continue to take those medications as previously ordered. You will be given specific information/education regarding any changes to your medications before leaving. Activity:: Activity as Tolerated Diet:: As Tolerated Discharge Orders Discharge Orders: Discharge Order (Routine); Ordered 08/31/22 Ordered By: Nicola Pascal DS: Diagnosis Discharge Diagnosis (1) Screening for colon cancer: Status: Acute Asessment and Plan: Normal colonoscopy today Next screening colonoscopy should be 5 to 10 years
--- NOTE | 2022-08-31 21:28 | COLE_ITS ---
Date of service: 09/01/22 Time of Service: 11:22 Colonoscopy Report Date of procedure: 09/01/22 Pre-op diagnosis general: Screening colonoscopy Post-op diagnosis procedure note: other (Normal colonoscopy) Procedure: Colonoscopy Surgeon: Nicola Pascal Anesthesia Type: General:No Airway Estimated blood loss (mL): 0 Pathology: none sent Complications: None Disposition: same day Indications: Bruce is a 66-year-old male who is here for screening colonoscopy. He is undergone the procedure before, and he underwent removal of tubular adenoma. Prep: Miralax/Dulcolax Procedure Start Time: 10:43 Procedure End Time: 11:01 Retraction Time: 11 Findings: Normal colonoscopy Procedure Description: After the induction of monitored anesthetic care, and with the patient in left lateral decubitus position, I began by performing an external anorectal exam.? Perineum and skin were normal, as was the anal verge.? There was no not evidence of external hemorrhoids.? Next, I performed a digital rectal exam.? I did appreciate any abnormal findings.? Next, I advanced a colonoscope into the rectal vault.? I performed retroflexion.? This appeared normal.? Using insufflation, I then advanced the colonoscope beyond the rectal folds and into t he sigmoid colon before advancing towards the cecum.? The quality of the prep was excellent.? The scope was noted to be in the cecum by identification of the ileocecal valve and appendiceal orifice.? I then began withdrawing the colonoscope using repeated irrigation as necessary for full evaluation of the colonic mucosa. ?Once the scope was withdrawn to the level of the rectum, great care was taken to examine portions of the rectal folds.? I did not see any evidence of cancers, polyps, or other colon abnormalities. Finally, the scope was withdrawn and the patient was brought to the same-day surgery recovery unit as the anesthetic wore off. ?The findings and instructions were shared with the patient prior to discharge.
[2022-09-01 09:06] VITALS: BP 130/88; PULSE 95; RESP 18; TEMP 36.3; O2SAT 99
[2022-09-01] MEDS: Lactated Ringers 1,000 ML 80 ML IV (09:43)
--- NOTE | 2022-09-01 10:04 | W.ANESPRE ---
General Info Date of Service Date Performed: 09/01/22 Height: 5 ft 6 in Weight: 72.5 kg Body Mass Index (BMI): 25.7 Surgical Procedure: Operation Date: 09/01/22 10:35 Proposed Procedure Side Surgeon p Colonoscopy Nicola Pascal MD Meds Allergies and Home Medications Allergies Allergy/AdvReac Type Severity Reaction Status Date / Time Penicillins Allergy Unknown HIVES Verified 09/01/22 09:22 Home Medication Medication Instructions Recorded atorvastatin 20 mg tablet 20 mg PO HS 08/31/22 hydrochlorothiazide 12.5 mg capsule 12.5 mg PO HS 08/31/22 ramipril 10 mg capsule 10 mg PO HS 08/31/22 Current Visit Medications: Current Medications Generic Name Dose Route Start Last Admin Trade Name Freq PRN Reason Stop Dose Admin Hyoscyamine Sulfate 0.125 mg 08/31/22 21:29 Hyoscyamine 0.125 Mg Sl/Oral/Chew SL DIRECTED PRN Ringer's Solution 1,000 mls @ 80 mls/hr 09/01/22 06:00 09/01/22 09:43 IV 09/30/22 23:59 80 mls/hr INFUSION TWILA Administration IV Miscellaneous Supplies 1 each 09/01/22 06:00 Iv Access IV 09/30/22 23:59 DIRECTED TWILA Ondansetron HCl 4 mg 08/31/22 21:29 Ondansetron 4 Mg/2 Ml Vial IVP Q4H PRN PRN Nausea / Vomiting Sodium Chloride 0 ml 09/01/22 06:00 Normal Saline Flush 10 Ml Syr IV 09/30/22 23:59 PRN PRN Sodium Chloride 0 ml 09/01/22 06:00 Normal Saline 10 Ml Vial IJ 09/30/22 23:59 DIRECTED PRN Sterile Water 0 ml 09/01/22 06:00 Water,Injection,Sterile 10 Ml Vial IJ 09/30/22 23:59 DIRECTED PRN PFSH Active Problems Active Problems: Problem Status Onset Code Essential hypertension I10 Hyperlipidemia E78.5 Obstructive sleep apnea 05/10/17 G47.33 IFG (impaired fasting glucose) R73.01 BPH (benign prostatic hyperplasia) N40.0 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 Douglas); 12/23/2021 CT: stable, no further f/u needed COVID-19 Substance use disorder 1982 Surgical History Surgical History Amputation pt denies Broken Nose Colonoscopy - [facility] (08/28/17) H/O arthroscopy of left knee 2012- Dr. Buitrago Liver BX (04/25/96) x2 REPAIR OF RUPTERED ACHILLES TENDON Tobacco Smoking/Tobacco Use Status: Former Tobacco Use Passive smoking exposure: No Alcohol Alcohol Intake: former Substance Use Substance use: Current Sobriety Substance use type: does not use Vital Signs and Lab Results Vital Signs Most Recent Vital Signs in EMR: Most Recent Vital Signs Temp Pulse Resp BP Pulse Ox 36.3 C L 95 H 18 130/88 99 09/01/22 09:06 09/01/22 09:06 09/01/22 09:06 09/01/22 09:06 09/01/22 09:06 Lab Results Blood Type / Crossmatch: No Data to Display Complete Blood Count: No Data to Display Complete Metabolic Panel: No Data to Display Liver Function Panel: No Data to Display Coagulation Panel: No Data to Display Cardiac Panel: No Data to Display Arterial Blood Gas: No Data to Display Venous Blood Gas: No Data to Display Pancreas Panel: No Data to Display Thyroid Panel: No Data to Display Infectious Disease: No Data to Display Blood Cultures: No Data to Display Toxicology Panel: No Data to Display Imaging and Studies Imaging and Studies Study information below may be from another EMR and interpreted by another provider. Please see original notes in EMR for more complete details. EKG Summary: 03/20 Sinus rhythm...normal P axis, V-rate 60- 99 Atrial premature complex...SV complex w/ short R-R interval Stress Test Summary: 03/20 Stress ECG Conclusion 1. The resting electrocardiogram was normal 2. Patient exercised on the Richi protocol. He completed a workload of 13.54 METS, stopping due to leg fatigue 3. Normal heart rate and blood pressure response to exercise 4. Electrocardiographically there was no evidence of myocardial ischemia 5. There were rare ventricular ectopic beats 6. Martin treadmill score is 12, low risk Echocardiogram Summary: 10/13 Impressions: Normal study. Summary: 1. Left ventricle: The cavity size was normal. Wall thickness was at the upper limits of normal. Systolic function was at the lower limits of normal. The estimated ejection fraction was 55%. Wall motion was normal; there were no regional wall motion abnormalities. 2. Aortic valve: Trivial regurgitation. Valve area: 2.3cm^2(VTI). 3. Right ventricle: The cavity size was normal. Wall thickness was normal. Systolic function was normal. 4. Pulmonary arteries: PA peak pressure: 31mm Hg (S) Anesthesia Assessment and Plan Anesthesia History Personal History: No History of Anesthesia Complications Family History: No Family History of Anesthesia Complications Exercise Tolerance Exercise Tolerance: Metabolic Equivalents>4 Cardiac & Pulmonary Exam Cardiac Exam: Normal S1/S2 Heart Sounds Pulmonary Exam: Clear Bilateral Breath Sounds Implantable Cardiac Device Does patient have a Pacemaker or an ICD?: No Airway Exam Known Difficult Airway: No Mallampati Class: 2 Mouth Opening: Normal (> 3cm) Thyromental Distance: Greater than 3 cm Neck Range of Motion: Full ROM Neck Circumference: Normal Teeth Condition: Normal Dentition ASA Classification ASA Score: ASA 2 Emergency Case?: No NPO Status NPO Status: NPO Clears >2 hours, Solids >8 hours Anesthesia Plan Resuscitation Status: Full Code Anesthesia Technique: General Anesthesia Airway Planned: Natural Airway Monitors Used: Standard Monitors
[2022-09-01 10:17] VITALS: BMI 25.7
[2022-09-01 11:12] VITALS: BP 107/70; PULSE 88; RESP 16; TEMP 36.4; O2SAT 94
--- NOTE | 2022-09-01 11:28 | W.ANESPOSTOP ---
Postoperative Evaluation Date, Time and Location Date Performed: 09/01/22 Time Performed: 11:28 Patient Location: Day Surgery Unit Vital Signs Most Recent Imported Vital Signs: Most Recent Vital Signs Temp Pulse Resp BP Pulse Ox 36.4 C L 88 16 107/70 94 09/01/22 11:12 09/01/22 11:12 09/01/22 11:12 09/01/22 11:12 09/01/22 11:12 Pain Score Most Recent Pain Score: Most Recent Pain Score Pain Level 0 09/01/22 11:12 Assessment Mental Status: Awake (Alert & Oriented to Patient Baseline) Airway and Respiratory Function: Patent airway with normal (patient baseline) respiratory exam Cardiovascular Function: Hemodynamically Stable Hydration Status: Adequately Hydrated Nausea & Vomiting: No Nausea or Vomiting Pain: Pt. Denies Any Pain Peripheral Nerve Block: Patient did not receive a nerve block
[2022-09-01 11:40] VITALS: BP 114/84; PULSE 78; RESP 18; TEMP 36.2; O2SAT 96
== END 2022-09-01 11:54 | disposition home or self-care (01) ==
PROVIDERS: PCP Nurse Practitioner Family; Visit Provider Surgery
PROC: 0DJD8ZZ Inspection of Lower Intestinal Tract, Via Natural or Artificial Opening Endoscopic (ICD-10-PCS; CPT 45378; principal; 2022-09-01 10:30)
DX: Z12.11 Encounter for screening for malignant neoplasm of colon (principal); Z86.010 Personal history of colon polyps
CPT/HCPCS: G0105

== ENCOUNTER 2022-12-12 01:16 | Outpatient (CLI) | payer MEDICARE, SELFPAY ==
--- NOTE | 2022-12-12 07:00 | DI.US_ITS ---
Exam(s) US ABDOMEN LIMITED EXAM: US ABDOMEN LIMITED CLINICAL HISTORY: screening for HCC, h/o cirrhosis,k74.60 TECHNIQUE: Ultrasound abdomen performed using standard protocol. COMPARISON: US US ABDOMEN from 04/08/2020 FINDINGS: LIVER: Normal size. Normal echogenicity. Heterogeneous echotexture. Slight nodular contour. No fo becky liver lesions are seen.. GALLBLADDER: No evidence of cholelithiasis. No evidence of wall thickening. No pericholecystic fluid identified. BACK'S SIGN: Negative. BILIARY SYSTEM: No intrahepatic or extrahepatic biliary ductal dilation. KIDNEYS: Kidneys are symmetric in size. No evidence of renal calculi. No evidence of hydronephrosis. No renal mass or cyst identified. PANCREAS: Normal where visualized. SPLEEN: Not enlarged. ABDOMINAL AORTA AND IVC: Visualized portions normal caliber. ASCITES: None seen. IMPRESSION: Liver has a heterogeneous echotexture but is normal in size. No liver mass is seen. DATA REPOSITORY:
== END 2022-12-12 01:36 ==
LOC: DI 01:16
PROVIDERS: PCP Nurse Practitioner Family; Visit Provider Nurse Practitioner Family
DX: K76.89 Other specified diseases of liver (principal)
CPT/HCPCS: 76705

== ENCOUNTER 2023-09-14 04:08 | Outpatient (CLI) | payer MEDICARE, SELFPAY ==
[2023-09-14 09:30] LABS: Abs Immature Grans 0.01 10^3/uL (0.0-0.06); Absolute Basophil Count 0.03 10^3/uL (0.0-0.2); Absolute Eosinophil Count 0.23 10^3/uL (0.0-0.7); Absolute Lymphocyte Count 1.72 10^3/uL (1.2-3.4); Absolute Monocyte Count 0.54 10^3/uL (0.1-0.8); Absolute Neutrophil Count 3.86 10^3/uL (1.2-6.7); Basophils % 0.5; Eosinophils % 3.6; HCT 43.8 % (40.0-50.0); HGB 15.7 g/dL (13.5-17.5); Immature Grans % 0.2; Lymphocytes % 26.9; MCH 32.2 pg (27.0-33.0); MCHC 35.8 % (32.0-36.0); MCV 90 fL (80-95); MPV 9.4 fL (8.0-11.0); Monocytes % 8.5; Neutrophils % 60.3; Platelet Count 184 10^3/uL (130-400); RBC 4.87 10^6/uL (4.36-5.78); RDW 13.2 % (11.8-14.1); RDW-SD 43.4 fL; WBC 6.39 10^3/uL (4.4-10.8)
[2023-09-14 09:31] LABS: Hemoglobin A1C 5.4 % (<5.7)
[2023-09-14 09:36] LABS: INR 1.1 (0.9-1.1); Prothrombin Time 11.1 sec (9.1-11.1)
[2023-09-14 10:14] LABS: ALT 26 U/L (16-63); AST 15 U/L (15-37); Albumin 4.1 g/dL (3.4-5.0); Alkaline Phosphatase 104 U/L (46-116); Anion Gap 9.2 mmol/L (3-11); BUN 11 mg/dL (7-18); Bilirubin, Total 1.2 mg/dL (0.2-1.0); CO2 28.8 mmol/L (21.0-32.0); CREATININE 0.9 mg/dL (0.70-1.30); Calcium 9.2 mg/dL (8.5-10.1); Calculated LDL 84 mg/dL (<100); Chloride 104 mmol/L (98-107); Cholesterol 142 mg/dL (<200); Estimated GFR 92.45 (mL/min/1.73m2); Glucose 108 mg/dL (74-106); HDL Cholesterol 47 mg/dL (40-60); Potassium 4.3 mmol/L (3.5-5.1); Sodium 142 mmol/L (136-145); Total Protein 7.7 g/dL (6.4-8.2); Triglyceride 57 mg/dL (<150)
== END 2023-09-14 04:09 | disposition home or self-care (01) ==
LOC: LBO 04:08
PROVIDERS: PCP Nurse Practitioner Family; Referring Provider Nurse Practitioner Family; Visit Provider Nurse Practitioner Family
DX: R73.01 Impaired fasting glucose (principal); B18.2 Chronic viral hepatitis C; K74.60 Unspecified cirrhosis of liver; E78.5 Hyperlipidemia, unspecified
CPT/HCPCS: 36415; 80053; 80061; 83036; 85025; 85610

== ENCOUNTER → 2023-09-27 01:41 | Outpatient (CLI) | payer MEDICARE, SELFPAY ==
--- NOTE | 2023-09-27 06:30 | DI.US_ITS ---
Exam(s) US ABDOMEN EXAM: US ABDOMEN CLINICAL HISTORY: Liver cancer screening,HEPATIC CIRRHOSIS,CHRONIC HEP C,K74.60,B18.2 TECHNIQUE: Ultrasound abdomen performed using standard protocol. COMPARISON: CT CT ABDOMEN WO from 12/23/2021 US US ABDOMEN LIMITED from 12/12/2022 FINDINGS: ABDOMINAL AORTA AND IVC: Visualized portions normal caliber. Atherosclerotic calcification is present . PANCREAS: Normal where visualized. LIVER: Normal. Hepatopedal flow in the Portal Vein. The liver measures 15 cm long. No hepatic mass i s seen sonographically. GALLBLADDER:No evidence of cholelithiasis. No evidence of wall thickening. No pericholecystic fluid i dentified. BILIARY SYSTEM: Common bile duct measures < 7 mm. No intrahepatic biliary ductal dilation. BACK'S SIGN: Negative. KIDNEYS: Kidneys are symmetric in size. No evidence of renal calculi. No evidence of hydronephrosis. Bilateral renal cysts. No follow-up is recommended. SPLEEN: Not enlarged. ASCITES: None seen. IMPRESSION: No evidence of a hepatic mass sonographically. DATA REPOSITORY:
== END ==
PROVIDERS: PCP Family Medicine; Visit Provider Family Medicine
DX: B18.2 Chronic viral hepatitis C (principal); K74.60 Unspecified cirrhosis of liver; Z12.89 Encounter for screening for malignant neoplasm of other sites
CPT/HCPCS: 76700

== ENCOUNTER 2024-02-09 16:07 | Emergency (ER) | payer MEDICARE, SELFPAY ==
[2024-02-09 16:10] VITALS: BP 149/96; PULSE 93; TEMP 36.1; O2SAT 99
--- NOTE | 2024-02-09 16:29 | W.ED.GENAD ---
Discharge Plan Disposition Patient Disposition: Home Condition: Stable Discharge Details Clinical Impression: Injury of left index finger Primary Care Provider: Francois Goddard ED Provider: Roel Kan Home Meds and New Rx's Prescriptions: Continued atorvastatin 20 mg tablet 20 mg PO HS Qty: 90 3RF ramipril 10 mg capsule 10 mg PO DAILY Qty: 90 3RF hydrochlorothiazide 12.5 mg capsule 12.5 mg PO DAILY Qty: 90 3RF Discharge Instructions Additional Instructions: If you have signs of infection such as spreading redness or severe pain return to the emergency department for reevaluation. Otherwise this wound should heal well on its own. HPI General Mode of arrival: ambulatory. Date/Time Provider Initiated Documentation: 02/09/24 16:14. Limitations to Documentation: no limitations. Information obtained by: patient. History of Present Illness 68 year old M presents to the emergency department with the chief complaint of Left index finger injury, described as mild, Quality is described as aching, and is localized to the left and upper extremity. Patient reports no radiation. Patient started experiencing this hour(s) (1) and it has been constant. No relieving factors improve symptom(s), No exacerbating factors reported . Patient notes no other symptoms.. Patient did receive the following treatments prior to arrival, none Related Data Home Medications ?Medication ?Instructions ?Recorded ?Confirmed atorvastatin 20 mg tablet 20 mg PO HS #90 tabs 09/21/23 02/09/24 hydrochlorothiazide 12.5 mg capsule 12.5 mg PO DAILY #90 caps 09/21/23 02/09/24 ramipril 10 mg capsule 10 mg PO DAILY #90 caps 09/21/23 02/09/24 Previous Rx's ?Medication ?Instructions ?Recorded atorvastatin 20 mg tablet 20 mg PO HS #90 tabs 09/21/23 hydrochlorothiazide 12.5 mg capsule 12.5 mg PO DAILY #90 caps 09/21/23 ramipril 10 mg capsule 10 mg PO DAILY #90 caps 09/21/23 Allergies Allergy/AdvReac Type Severity Reaction Status Date / Time Penicillins Allergy Unknown HIVES Verified 02/09/24 16:21 General Stated Complaint: Laceration DON: 3 Review of Systems All systems reviewed & are unremarkable except as noted in HPI and below Constitutional Constitutional: Denies chills, Denies fever(s) and Denies weakness Cardiovascular Cardiovascular: Denies chest pain and Denies dyspnea Respiratory Respiratory: Denies cough and Denies dyspnea Gastrointestinal Gastrointestinal: Denies abdominal pain, Denies nausea and Denies vomiting Musculoskeletal Musculoskeletal: Denies joint swelling Neurologic Neurologic: Denies weakness Exam Const General: no acute distress Orientation: alert [facility] Head: normal to inspection Ears: external ears normal General nose exam: external nose normal Mouth: moist mucous membranes Eyes General: appearance normal, both eyes and all related structures Neck Neck: normal visual inspection Resp Effort & Inspection: normal respiratory effort and able to speak in complete sentences Cardio Rate: regular rate Skin General skin exam: no rashes or lesions noted Neuro General: patient alert and patient oriented x3 Extrem General: full ROM and capillary refill normal Psych Mental Status: mental status grossly normal Course Vital Signs Vital signs: Vital Signs Temperature 36.1 C L 02/09/24 16:10 Pulse 93 H 02/09/24 16:10 Blood Pressure 149/96 H 02/09/24 16:10 Pulse Oximetry 99 02/09/24 16:10 Temperature 36.1 C L 02/09/24 16:10 Temperature Source Temporal Artery Scan 02/09/24 16:10 Pulse 93 H 02/09/24 16:10 Respiratory Effort Normal, Non-Labored 02/09/24 16:12 Blood Pressure 149/96 H 02/09/24 16:10 Pulse Oximetry 99 02/09/24 16:10 Oxygen Delivery Method Room Air 02/09/24 16:10 Oxygen Flow Rate 0 02/09/24 16:10 Medical Decision Making 68-year-old male comes in with a left index finger injury. He says he was changing the knives on his wood zig zag stitcher when 1 of sliced the tip of his left index finger. Did not fall or sustain other injuries. He has a small 1 cm skin avulsion of the distal left index finger with a small portion of the distal nail involved. There is no laceration that can be sutured, no visible bone, he has full range of motion and intact sensation in the finger. Normal cap refill. Advised this will likely have to heal on its own, no lesions or wounds amenable to suturing. Will try to cover him with skin adhesive to help decrease oozing. Please do finger tourniquet then applied skin adhesive over the wound, patient tolerated well and has no further bleeding or oozing. He is stable for discharge and advised to return if signs of infection. Wound was copiously irrigated and cleaned with sterile water Differential Diagnosis Differential Diagnosis: Skin avulsion, laceration Quality:SDOH Health Related Social Needs: Health related social needs details non Thank [facility] All Active Problems (Updated 02/09/24 @ 16:42 by Roel Kan MD) Injury of left index finger (Acute) Essential hypertension (Chronic) Hyperlipidemia (Chronic) Obstructive sleep apnea (Chronic 05/10/17) IFG (impaired fasting glucose) (Chronic) BPH (benign prostatic hyperplasia) (Chronic) Hepatic cirrhosis due to chronic hepatitis C infection (Chronic) 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 Douglas); 12/23/2021 CT: stable, no further f/u needed Surgical History (Updated 11/17/22 @ 09:35 by Aura Johns NP) Status post Achilles tendon repair History of liver biopsy (~1995) ; x2 (1995, 2000) H/O arthroscopy of left knee 2012- Dr. Buitrago Colonoscopy [place] [facility] [place]) Broken Nose Amputation pt denies Family History Mother , Broken heart? at age 70. Rheumatoid arthritis Heart disease Myocardial infarction Father , Parkinson's at age 70. Parkinson's disease Sister Substance abuse Historically Brother No problems noted. 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
== END 2024-02-09 16:54 | disposition home or self-care (01) ==
LOC: ER 16:57
PROVIDERS: Emergency Provider Emergency Medicine; PCP Family Medicine
DX: S61.211A Laceration without foreign body of left index finger without damage to nail, initial encounter (principal); I10 Essential (primary) hypertension; E78.5 Hyperlipidemia, unspecified; W26.9XXA Contact with unspecified sharp object(s), initial encounter; Y92.89 Other specified places as the place of occurrence of the external cause; Y99.0 Civilian activity done for income or pay
CPT/HCPCS: 99283

== ENCOUNTER 2024-09-12 03:08 | Outpatient (CLI) | payer MEDICARE, SELFPAY ==
[2024-09-12 10:28] LABS: ALT 36 U/L (16-63); AST 19 U/L (15-37); Albumin 3.5 g/dL (3.4-5.0); Alkaline Phosphatase 136 U/L (46-116); Anion Gap 7.3 mmol/L (3-11); BUN 17 mg/dL (7-18); Bilirubin, Total 1.05 mg/dL (0.2-1.0); CO2 30.7 mmol/L (21.0-32.0); Calcium 9.5 mg/dL (8.5-10.1); Chloride 104 mmol/L (98-107); Estimated GFR 80.97 (mL/min/1.73m2); Glucose 111 mg/dL (74-106); Potassium 4.5 mmol/L (3.5-5.1); Sodium 142 mmol/L (136-145)
== END 2024-09-12 03:09 | disposition home or self-care (01) ==
LOC: LBO 03:08
PROVIDERS: PCP Family Medicine; Referring Provider Family Medicine; Visit Provider Family Medicine
DX: B18.2 Chronic viral hepatitis C (principal); K74.60 Unspecified cirrhosis of liver
CPT/HCPCS: 36415; 80053

== ENCOUNTER 2024-09-23 01:18 | Outpatient (CLI) | payer MEDICARE, SELFPAY ==
--- NOTE | 2024-09-23 06:30 | DI.US_ITS ---
Exam(s) US ABDOMEN EXAM: US ABDOMEN CLINICAL HISTORY: Annual surveillance for liver cancer,hepatic cirrhosis due to chronic hep c TECHNIQUE: Ultrasound abdomen performed using standard protocol. COMPARISON: CT CT ABDOMEN WO from 12/23/2021 US US ABDOMEN from 09/27/2023 FINDINGS: LIVER: Normal size and echogenicity. No focal liver lesions are seen. GALLBLADDER: No evidence of cholelithiasis. No evidence of wall thickening. No pericholecystic fluid identified. BACK'S SIGN: Negative. BILIARY SYSTEM: No intrahepatic or extrahepatic biliary ductal dilation. KIDNEYS: Kidneys are symmetric in size. No evidence of renal calculi. No evidence of hydronephrosis. Small bilateral cysts again noted. No renal mass identified. PANCREAS: Normal where visualized. SPLEEN: Not enlarged. ABDOMINAL AORTA AND IVC: Visualized portions normal caliber. ASCITES: None seen. IMPRESSION: No evidence of liver mass. DATA REPOSITORY:
== END 2024-09-23 01:38 ==
LOC: DI 01:19
PROVIDERS: PCP Family Medicine; Visit Provider Family Medicine
DX: B18.2 Chronic viral hepatitis C (principal); K74.60 Unspecified cirrhosis of liver
CPT/HCPCS: 76700